=== PATIENT | female | born 1950 | race Caucasian/White ===

== ENCOUNTER 2020-11-17 09:59 | Outpatient (CLI) | payer MEDICARE ==
[2020-11-18 04:50] LABS: SARS-CoV-2 PCR by NAA Not Detected (NotDetected)
== END 2020-11-17 10:00 | disposition home or self-care (01) ==
LOC: CSHLAB 09:59
PROVIDERS: ATTEND Nurse Practitioner Acute Care
DX: Z20.822 Contact with and (suspected) exposure to COVID-19 (principal)
CPT/HCPCS: 87635; U0003; U0005

== ENCOUNTER 2023-09-19 13:08 | Emergency (ER) | payer MEDICARE ==
[2023-09-19 13:50] LABS: Bilirubin Neg (Negative); Blood, Urine 50 (Negative); Clarity Clear (Clear); Glucose, Urine (Dipstick) Normal (Negative); Ketone, Urine Negative (Negative); Leukocyte 500 (Negative); Nitrite Positive (Negative); Protein, Urine (Dipstick) Negative (Neg-Trace); Urobilinogen Normal mg/dL (Less than 2)
[2023-09-19 14:20] LABS: Bacteria/HPF 4+ HPF (None Seen); CAUTI Indications for Culture Pelvic or flank pain; RBC/HPF 0-3 HPF (0-3)
[2023-09-19 14:23] LABS: Urine Culture Reflex Yes Yes
[2023-09-19 16:31] LABS: #Eosinphils 0.2 10x3/uL (0.0-0.5); #Monocytes 0.7 10x3/uL (0.0-1.1); %Basophils 0.2 % (0.0-2.0); %Eosinophils 1.5 % (0.0-6.0); %Lymphocytes 14.9 % (18.0-47.0); %Monocytes 6.9 % (0.0-10.0); %Neutrophils 76.1 % (40.0-75.0); Hematocrit 42.8 % (34.9-44.5); Hemoglobin 14.3 g/dL (12.0-15.5); Mean Corpuscular HGB CONC 33.4 g/dL (32.0-36.0); Mean Corpuscular Hemoglobin 31.8 pg (27.0-33.0); Mean Corpuscular Volume 95.1 fl (81.6-98.3); Mean Platelet Volume 10.2 fl (7.4-10.4); Platelet Count 198 10x3/uL (150-450); RBC Distribution Width 14.4 % (11.5-14.5); White Blood Cell (WBC) Count 10.5 10x3/uL (3.5-10.5)
[2023-09-19 16:43] LABS: Influenza A by NAA Not Detected (NotDetected); Influenza B by NAA Not Detected (NotDetected); SARS-CoV-2 NAA Rapid Test Not Detected (NotDetected)
[2023-09-19 16:52] LABS: ALT (SGPT) 11 U/L (8-55); AST (SGOT) 18 U/L (5-34); Albumin 4.5 g/dL (3.4-4.8); Alkaline Phosphatase 78 U/L (40-110); Anion Gap 12 mmol/L (10-20); BUN (Urea Nitrogen) 15 mg/dL (9.8-20.1); Bilirubin, Total 1.4 mg/dL (0.2-1.2); Calc. Creatinine Clearance 0 mL/min (70-130); Calcium 9.5 mg/dL (7.8-10.44); Carbon Dioxide 28 mmol/L (23-31); Chloride 106 mmol/L (98-107); Estimated GFR 76; Globulin 1.8 g/dL (2.4-3.5); Glucose 103 mg/dL (83-110); Lipase 27 U/L (8-78); Magnesium 1.9 mg/dL (1.6-2.6); Protein, Total 6.3 g/dL (5.8-8.1); Sodium 142 mmol/L (136-145)
[2023-09-19] MEDS ORDERED: cefTRIAXone (ROCEPHIN) 1 GM VIAL ONE (17:05)
== END 2023-09-19 18:46 | disposition home or self-care (01) ==
LOC: CSHERS 13:08
DX: N39.0 Urinary tract infection, site not specified (principal); I50.9 Heart failure, unspecified; I11.0 Hypertensive heart disease with heart failure; E03.9 Hypothyroidism, unspecified; I42.7 Cardiomyopathy due to drug and external agent; Z85.72 Personal history of non-Hodgkin lymphomas
CPT/HCPCS: 0240U; 74177; 80053; 81001; 83605; 83690; 83735; 85025; 87040; 87086; 36415; 87077; 87186; 96365; J0696

== ENCOUNTER 2023-12-19 10:06 | Emergency (ER) | payer MEDICARE ==
[2023-12-19 11:18] LABS: Bilirubin Neg (Negative); Blood, Urine 25 (Negative); Clarity Slightly Cloudy (Clear); Glucose, Urine (Dipstick) Normal (Negative); Ketone, Urine Negative (Negative); Leukocyte 500 (Negative); Nitrite Negative (Negative); Protein, Urine (Dipstick) 15 mg/dl (Neg-Trace); Urobilinogen Normal mg/dL (Less than 2)
[2023-12-19 11:29] LABS: #Basophils 0.02 10x3/uL (0.0-0.2); #Eosinphils 0.05 10x3/uL (0.0-0.5); #Monocytes 0.56 10x3/uL (0.0-1.1); %Basophils 0.2 % (0.0-2.0); %Eosinophils 0.6 % (0.0-6.0); %Lymphocytes 14.7 % (18.0-47.0); %Monocytes 6.8 % (0.0-10.0); %Neutrophils 77.3 % (40.0-75.0); Hematocrit 42.8 % (34.9-44.5); Hemoglobin 14.1 g/dL (12.0-15.5); Mean Corpuscular HGB CONC 32.9 g/dL (32.0-36.0); Mean Corpuscular Hemoglobin 31.6 pg (27.0-33.0); Mean Platelet Volume 10.4 fl (7.4-10.4); Platelet Count 160 10x3/uL (150-450); RBC Distribution Width 14.5 % (11.5-14.5); Red Blood Cell (RBC) Count 4.46 10x6/uL (3.90-5.03); White Blood Cell (WBC) Count 8.3 10x3/uL (3.5-10.5)
[2023-12-19 11:32] LABS: ALT (SGPT) 9 U/L (8-55); AST (SGOT) 16 U/L (5-34); Albumin 3.9 g/dL (3.4-4.8); Alkaline Phosphatase 64 U/L (40-110); Anion Gap 13 mmol/L (10-20); BUN (Urea Nitrogen) 16 mg/dL (9.8-20.1); Bilirubin, Total 1.3 mg/dL (0.2-1.2); Calc. Creatinine Clearance 0 mL/min (70-130); Calcium 9.3 mg/dL (7.8-10.44); Carbon Dioxide 24 mmol/L (23-31); Chloride 107 mmol/L (98-107); Estimated GFR 81; Globulin 2.1 g/dL (2.4-3.5); Glucose 102 mg/dL (83-110); Lipase 24 U/L (8-78); Magnesium 1.8 mg/dL (1.6-2.6); Potassium 4.2 mmol/L (3.5-5.1); Sodium 140 mmol/L (136-145)
[2023-12-19 11:37] LABS: CAUTI Indications for Culture Dysuria,urgency,freq; RBC/HPF 0-3 HPF (0-3); WBC/HPF Greater than 50 HPF (0-3)
[2023-12-19 11:38] LABS: Bacteria/HPF 1+ HPF (None Seen)
[2023-12-19 11:39] LABS: Urine Culture Reflex Yes Yes
== END 2023-12-19 12:40 | disposition home or self-care (01) ==
LOC: CSHERS 10:06
DX: N39.0 Urinary tract infection, site not specified (principal); I11.0 Hypertensive heart disease with heart failure; I50.9 Heart failure, unspecified; F17.210 Nicotine dependence, cigarettes, uncomplicated
CPT/HCPCS: 80053; 81001; 83605; 83690; 83735; 85025; 87077; 87086; 87186; 87480; 87510; 87660; 99284

== ENCOUNTER 2024-02-13 10:09 | Emergency (ER) | payer MEDICARE ==
[2024-02-13 11:50] LABS: #Basophils 0.04 10x3/uL (0.0-0.2); #Eosinphils 0.11 10x3/uL (0.0-0.5); #Monocytes 0.96 10x3/uL (0.0-1.1); #Neutrophils 10.37 10x3/uL (1.5-8.4); %Basophils 0.3 % (0.0-2.0); %Eosinophils 0.9 % (0.0-6.0); %Lymphocytes 10.7 % (18.0-47.0); %Monocytes 7.4 % (0.0-10.0); %Neutrophils 80.2 % (40.0-75.0); Hematocrit 40.3 % (34.9-44.5); Hemoglobin 13.3 g/dL (12.0-15.5); Mean Corpuscular Hemoglobin 32.1 pg (27.0-33.0); Mean Corpuscular Volume 97.3 fL (81.6-98.3); Mean Platelet Volume 10.1 fL (7.4-10.4); Platelet Count 206 10x3/uL (150-450); Red Blood Cell (RBC) Count 4.14 10x6/uL (3.90-5.03); White Blood Cell (WBC) Count 12.9 10x3/uL (3.5-10.5)
[2024-02-13 12:27] LABS: ALT (SGPT) 10 U/L (8-55); AST (SGOT) 17 U/L (5-34); Alkaline Phosphatase 66 U/L (40-110); Anion Gap 11 mmol/L (10-20); BUN (Urea Nitrogen) 20 mg/dL (9.8-20.1); Calc. Creatinine Clearance 0 mL/min (70-130); Calcium 9.6 mg/dL (7.8-10.44); Carbon Dioxide 27 mmol/L (23-31); Chloride 105 mmol/L (98-107); Estimated GFR 72; Glucose 99 mg/dL (83-110); Potassium 4.2 mmol/L (3.5-5.1); Sodium 139 mmol/L (136-145)
== END 2024-02-13 13:12 | disposition home or self-care (01) ==
LOC: CSHERS 10:09
DX: N39.0 Urinary tract infection, site not specified (principal); E03.9 Hypothyroidism, unspecified; I11.0 Hypertensive heart disease with heart failure; I50.9 Heart failure, unspecified; F17.210 Nicotine dependence, cigarettes, uncomplicated
CPT/HCPCS: 36415; 80053; 85025; 99283

== ENCOUNTER 2025-03-28 14:39 | Emergency (ER) | payer MEDICARE ==
[2025-03-28 16:12] LABS: #Basophils 0.03 10x3/uL (0.0-0.2); #Eosinophils 0.17 10x3/uL (0.0-0.5); #Monocytes 0.96 10x3/uL (0.0-1.1); #Neutrophils 11.75 10x3/uL (1.5-8.4); %Basophils 0.2 % (0.0-2.0); %Eosinophils 1.2 % (0.0-6.0); %Lymphocytes 10.5 % (18.0-47.0); %Monocytes 6.6 % (0.0-10.0); %Neutrophils 81.2 % (40.0-75.0); Hematocrit 41.8 % (34.9-44.5); Hemoglobin 13.9 g/dL (12.0-15.5); Mean Corpuscular Hemoglobin 31.6 pg (27.0-33.0); Mean Corpuscular Volume 95.0 fL (81.6-98.3); Platelet Count 193 10x3/uL (150-450); Red Blood Cell (RBC) Count 4.40 10x6/uL (3.90-5.03); White Blood Cell (WBC) Count 14.47 10x3/uL (3.5-10.5)
[2025-03-28 16:28] LABS: ALT (SGPT) 15 U/L (Less than 34); AST (SGOT) 26 U/L (11-34); Albumin 4.2 g/dL (3.1-4.5); Alkaline Phosphatase 64 U/L (40-110); Anion Gap 11 mmol/L (10-20); BUN (Urea Nitrogen) 26 mg/dL (9.8-20.1); Bilirubin, Total 1.0 mg/dL (0.3-1.2); Calc. Creatinine Clearance 0 mL/min (70-130); Calcium 8.7 mg/dL (7.8-10.44); Carbon Dioxide 25 mmol/L (23-31); Chloride 106 mmol/L (98-107); Globulin 1.9 g/dL (2.4-3.5); Glucose 96 mg/dL (83-110); Potassium 4.0 mmol/L (3.5-5.1); Sodium 138 mmol/L (136-145)
[2025-03-28 16:46] LABS: Glucose, Urine (Dipstick) Normal (Negative); Leukocyte 100 (Negative); Protein, Urine (Dipstick) 30 mg/dl (Neg-Trace); Specific Gravity, Urine 1.015 (1.005-1.030)
[2025-03-28 17:15] LABS: Bacteria/HPF 2+ HPF (None Seen); CAUTI Indications for Culture Pelvic or flank pain; RBC/HPF 0-3 HPF (0-3); WBC/HPF 21-50 HPF (0-3)
[2025-03-28 17:16] LABS: Urine Culture Reflex Yes Yes
== END 2025-03-28 17:51 | disposition home or self-care (01) ==
LOC: CSHERS 14:39
DX: N39.0 Urinary tract infection, site not specified (principal); D72.829 Elevated white blood cell count, unspecified; I42.9 Cardiomyopathy, unspecified; F41.9 Anxiety disorder, unspecified; I10 Essential (primary) hypertension; Z85.72 Personal history of non-Hodgkin lymphomas; Z87.891 Personal history of nicotine dependence
CPT/HCPCS: 80053; 81001; 83605; 85025; 87086; 87426; 93005; 99285

== ENCOUNTER 2025-04-08 14:40 | Outpatient (CLI) | payer MEDICARE | END 2025-04-08 14:41 | disposition home or self-care (01) | LOC: CSHMAMMO 14:40 | PROVIDERS: ATTEND Family Medicine | DX: N63.11 Unspecified lump in the right breast, upper outer quadrant (principal) | CPT/HCPCS: 76642; 77066; G0279 ==

== ENCOUNTER 2025-04-09 12:34 | Emergency (ER) | payer MEDICARE ==
[2025-04-09] MEDS ORDERED: Lidocaine Viscous Sol 2% 15 ml UD Cup ONE (13:52)
[2025-04-09] MEDS ORDERED: Mag-Al 1200 mg/1200 mg/30 ML UDCUP ONE (13:52)
[2025-04-09] MEDS ORDERED: Famotidine/PF 20 mg/2ml Vial ONE (13:53)
[2025-04-09 13:57] LABS: #Basophils 0.03 10x3/uL (0.0-0.2); #Eosinophils 0.15 10x3/uL (0.0-0.5); #Monocytes 0.55 10x3/uL (0.0-1.1); #Neutrophils 6.40 10x3/uL (1.5-8.4); %Basophils 0.3 % (0.0-2.0); %Eosinophils 1.7 % (0.0-6.0); %Lymphocytes 20.6 % (18.0-47.0); %Monocytes 6.1 % (0.0-10.0); %Neutrophils 71.0 % (40.0-75.0); Hematocrit 42.3 % (34.9-44.5); Hemoglobin 13.8 g/dL (12.0-15.5); Mean Corpuscular Hemoglobin 31.8 pg (27.0-33.0); Mean Corpuscular Volume 97.5 fL (81.6-98.3); Platelet Count 167 10x3/uL (150-450); Red Blood Cell (RBC) Count 4.34 10x6/uL (3.90-5.03); White Blood Cell (WBC) Count 9.02 10x3/uL (3.5-10.5)
[2025-04-09 14:21] LABS: ALT (SGPT) 14 U/L (Less than 34); AST (SGOT) 16 U/L (11-34); Albumin 4.1 g/dL (3.1-4.5); Alkaline Phosphatase 72 U/L (40-110); Anion Gap 13 mmol/L (10-20); BUN (Urea Nitrogen) 21 mg/dL (9.8-20.1); Bilirubin, Total 1.1 mg/dL (0.3-1.2); Calc. Creatinine Clearance 0 mL/min (70-130); Calcium 9.1 mg/dL (7.8-10.44); Carbon Dioxide 26 mmol/L (23-31); Chloride 107 mmol/L (98-107); Globulin 1.7 g/dL (2.4-3.5); Glucose 101 mg/dL (83-110); Lipase 29 U/L (8-78); Potassium 4.0 mmol/L (3.5-5.1); Sodium 142 mmol/L (136-145)
[2025-04-09 14:25] LABS: Troponin I 0.017 ng/mL (< 0.028)
[2025-04-09 17:21] LABS: Troponin I 0.013 ng/mL (< 0.028)
== END 2025-04-09 17:48 | disposition home or self-care (01) ==
LOC: CSHERS 12:34
DX: R07.9 Chest pain, unspecified (principal); R12 Heartburn; I10 Essential (primary) hypertension; Z87.891 Personal history of nicotine dependence
CPT/HCPCS: 71045; 80053; 83690; 83880; 84484 ×2; 85025; 93005; Q0162; 36415; 96374